=== PATIENT | male | born 1985 | race Two or more races ===

== ENCOUNTER 2021-05-01 04:17 | Emergency (ER) | payer SELFPAY ==
[~2021-05-01] VITALS: Ht 167.6 cm; Wt 80.8 kg
[2021-05-01] MEDS ORDERED: SODIUM CHLORIDE 0.9% 1,000ML IVBOLUS ONE (05:00)
[2021-05-01] MEDS ORDERED: FAMOTIDINE 20 MG/2 ML IVPush ONE (05:00)
[2021-05-01] MEDS ORDERED: ONDANSETRON 2MG/ML, 2ML IVPush ONE (05:00)
[2021-05-01] MEDS ORDERED: ONDANSETRON 2MG/ML, 2ML ONE (05:04)
[2021-05-01] MEDS ORDERED: FAMOTIDINE 20 MG/2 ML ONE (05:04)
--- NOTE | 2021-05-01 05:11 | NUR ---
PT HERE FOR RUQ PAIN WITH N/V. PIV PLACED. FLUIDS RUNNING AND PT MEDICATED. VSS. PT DESCRIBES PAIN CRAMPING AND APPEARS VERY UNCOMFORTABLE. FAMILY AT BEDSIDE
[2021-05-01 05:16] LABS: BASOPHILS % (AUTO) 1 % (0-1); EOSINOPHILS % (AUTO) 0 % (1-7); LYMPHOCYTES % (AUTO) 11 % (22-44); MEAN CORPUSCULAR HEMOGLOBIN 31.2 pg (27.5-34.5); MEAN CORPUSCULAR HGB CONC 35.2 g/dL (33.2-36.2); MEAN PLATELET VOLUME 9.1 fL (7.4-10.4); MONOCYTES % (AUTO) 4 % (2-9); NEUTROPHILS % (AUTO) 85 % (42-75); PLATELET COUNT 244 x10^3/uL (130-400); RED BLOOD COUNT 5.24 x10^6/uL (4.38-5.82); RED CELL DISTRIBUTION WIDTH 13.3 % (9.4-14.8)
[2021-05-01 05:17] LABS: MD NO
[2021-05-01 05:24] LABS: ALANINE AMINOTRANSFERASE 34 U/L (12-78); ALBUMIN 5.1 g/dL (3.4-5.0); ANION GAP 10 mmol/L (5-15); CALCIUM 9.6 mg/dL (8.5-10.1); CHLORIDE 108 mmol/L (98-107); CREATININE 1.38 mg/dL (0.7-1.3)
[2021-05-01 05:26] LABS: ALKALINE PHOSPHATASE 80 U/L (45-117); BILIRUBIN,TOTAL 1.1 mg/dL (0.2-1.0); TOTAL PROTEIN 8.3 g/dL (6.4-8.2)
[2021-05-01] MEDS ORDERED: DICYCLOMINE 10 MG/ML, 2ML IM ONE (05:30)
[2021-05-01] MEDS ORDERED: METOCLOPRAMIDE 5 MG/ML, 2ML IVPush ONE (05:30)
[2021-05-01] MEDS ORDERED: DICYCLOMINE 10 MG/ML, 2ML ONE (05:32)
[2021-05-01] MEDS ORDERED: METOCLOPRAMIDE 5 MG/ML, 2ML ONE (05:32)
--- NOTE | 2021-05-01 05:42 | NUR ---
PT REMEDICATED FOR NAUSEA AND PAIN. VSS. FAMILY AT BEDSIDE. CALL LIGHT IN REACH
--- NOTE | 2021-05-01 06:42 | NUR ---
REPORT FROM JOSH SPEARS
[2021-05-01 06:43] VITALS: BP 118/45
--- NOTE | 2021-05-01 07:43 | NUR ---
PT TOLERATED PO FLUIDS
--- NOTE | 2021-05-01 08:08 | NUR ---
Patient given discharge instructions and RX, they have confirmed that they understand the instructions. Patient ambulatory with steady gait.
== END 2021-05-01 08:09 | disposition home or self-care (01) ==
LOC: ED 06:06
DX: R10.32 Left lower quadrant pain (principal); G89.29 Other chronic pain; N28.9 Disorder of kidney and ureter, unspecified; R11.2 Nausea with vomiting, unspecified; R19.7 Diarrhea, unspecified
CPT/HCPCS: 36415; 74021; 80053; 83690; 85025; 93005; 96372; 96374; 96375; 99285; J0500; J2405; J2765; J7030